=== PATIENT | male | born 1985 | race Caucasian/White ===

== ENCOUNTER 2020-02-29 20:33 | Emergency (ER) | payer OTHER, SELFPAY ==
[2020-02-29 20:38] VITALS: BP 152/91; PULSE 83; RESP 18; TEMP 36.2; O2SAT 97
--- NOTE | 2020-02-29 20:41 | ED.ANIMALBIT ---
HPI - Animal Bite General Chief Complaint: Animal Bite Stated Complaint: Dog bite Time Seen by Provider: 02/29/20 20:37 Source: patient and RN notes reviewed Mode of arrival: ambulatory Limitations: no limitations History of Present Illness HPI narrative: A 34 y/o male presents to the ED after being bit by a dog earlier this evening. He states that he was walking his dog when it got into a fight with their neighbors dog when he was bitten on his rt hand, causing pain and a puncture wound. He reports that he knows that the dog is up to date on its vaccines but that he is unsure of when his last tetanus shot was. He notes that he cleaned the wound with peroxide shortly after and that he took 800 mg of Motrin roughly 30 minutes YARN MAN. He denies any numbness, tingling, or weakness. He also denies wanting any pain medication at this time. complaint: animal bite Onset (ago): hour(s) Animal: dog Description of animal: household pet Mechanism: bite Location - Extremities: Right: hand Context: animals fighting Associated symptoms: other (puncture wound and pain to rt hand) Related Data Patient tetanus UTD: No Allergies Allergy/AdvReac Type Severity Reaction Status Date / Time Penicillins Allergy Unknown Verified 02/29/20 20:52 Review of Systems Review of Systems: All systems reviewed & are unremarkable except as noted in HPI and below Integumentary/Breasts: Skin/Breast: Reports wounds (painful puncture to rt hand) Neurologic: Denies focal weakness, Denies numbness and Denies tingling PMFSH Past Medical History Medical History (Updated 02/29/20 @ 21:13 by Sam Rangel MD) Asthma Surgical History Surgical History (Updated 02/29/20 @ 20:46 by Juan C Squires) No history of previous surgery Social History Social History (Updated 02/29/20 @ 20:47 by Juan C Squires) Smoking status: Never smoker Smokeless tobacco user: chewing tobacco Substance use: never Exam Narrative: Exam Narrative: GENERAL: Well-appearing, well-nourished, and in no acute distress. HEAD: Normocephalic, atraumatic. HEART: Regular rate and rhythm. Normal peripheral pulses. EXTREMITIES: Normal range of motion. Tender to palpation over the thenar eminence of the right hand. Neurovascular intact throughout the hand. SKIN: Warm, dry, puncture wound right thenar eminence with additional superficial abrasion from bite injury. No active bleeding. NEURO: No focal deficits. Alert and oriented x3. Course Course Emergency Course: Wound cleansed. Tetanus updated. Doxycycline given for infection prophylaxis. Vital Signs Vital signs: Vital Signs Temperature 97.2 F L 02/29/20 20:38 Pulse Rate 83 02/29/20 20:38 Respiratory Rate 18 02/29/20 20:38 Blood Pressure 152/91 H 02/29/20 20:38 Pulse Oximetry 97 02/29/20 20:38 Temperature 97.2 F L 02/29/20 20:38 Pulse Rate 83 02/29/20 20:38 Respiratory Rate 18 02/29/20 20:38 Blood Pressure 152/91 H 02/29/20 20:38 Pulse Oximetry 97 02/29/20 20:38 Discharge Plan Discharge Clinical Impression: Dog bite Qualifiers: Encounter type: initial encounter Qualified Code(s): W54.0XXA - Bitten by dog, initial encounter Patient Disposition: Home, Self-Care Condition: Stable Instructions: Antibiotic Form, Animal Bite (ED) Additional Instructions: Return to the ER if your hand/forearm is red/hot/swollen, you have pus draining from your wound, you develop fever over 100.4 ?F. Prescriptions: New doxycycline hyclate 100 mg tablet 100 mg PO BID Qty: 10 RF: 0 Follow-up/Referrals: UNKNOWN,DOCTOR [Primary Care Provider] - 1 Week
[2020-02-29] MEDS: DOXYCYCLINE HYCLATE 100 MG TABLET PO (21:05)
[2020-02-29] MEDS: TETANUS,DIPHTHERIA,AC PERTUSSIS ADULT (0.5 ML) BOOSTRIX IM (21:05)
[2020-02-29 21:26] VITALS: BP 140/89; PULSE 80; RESP 16; O2SAT 100
== END 2020-02-29 21:27 | disposition home or self-care (01) ==
PROVIDERS: Emergency Provider Emergency Medicine
DX: S61.451A Open bite of right hand, initial encounter (principal); J45.909 Unspecified asthma, uncomplicated; Z23 Encounter for immunization; F17.220 Nicotine dependence, chewing tobacco, uncomplicated; W54.0XXA Bitten by dog, initial encounter
CPT/HCPCS: 90471; 90715; 99283; A9270

== ENCOUNTER 2022-08-14 11:59 | Emergency (ER) | payer OTHER, SELFPAY ==
--- NOTE | ~2022-08-14 | XR_ITS ---
EXAMINATION: XR ankle LT min 3V DATE: 08/14/2022 12:18 INDICATION: Left ankle pain. TECHNIQUE: 4 views of left ankle were obtained. COMPARISON: None. FINDINGS: Bone alignment is normal. No fracture. Joint spaces are well maintained. There is an enthes ophyte at posterior aspect of calcaneal tuberosity. IMPRESSION: 1. No acute fracture. Reviewed, dictated and finalized at location A. IMPRESSION: 1. No acute fracture.
[2022-08-14 12:01] VITALS: BP 145/84; PULSE 73; RESP 18; TEMP 36; O2SAT 100
--- NOTE | 2022-08-14 12:29 | ED.GENADULT ---
HPI - General Adult General Chief complaint: Extremity Injury, Lower Stated complaint: L ankle pain Time Seen by Provider: 08/14/22 12:20 History of Present Illness HPI narrative: This is a 37-year-old male presents to ED with left ankle pain. Patient was playing football with his son when he tried to start running he felt a popping sensation in the back of his ankle. Since then he has had weakness with dorsiflexion. He then came to the emergency department for further evaluation. Related Data Allergies Allergy/AdvReac Type Severity Reaction Status Date / Time Penicillins Allergy Unknown Verified 02/29/20 20:52 Review of Systems Review of Systems: CONSTITUTIONAL: Denies night sweats. EYES: No eye pain ENT: Denies rhinorrhea CARDIOVASCULAR: Denies palpitations RESPIRATORY: Denies hemoptysis GASTROINTESTINAL: Denies hematemesis GENITOURINARY: Denies hematuria. SKIN: Denies rash MUSCULOSKELETAL: Denies myalgia. NEUROLOGIC: Denies weakness. PSYCHIATRIC: Denies delusions [facility] Past Medical History Medical History (Updated 08/14/22 @ 12:46 by Ky Valle MD) Asthma Asthma Depression Surgical History Surgical History (Updated 02/29/20 @ 20:46 by Juan C Squires) No history of previous surgery Social History Social History (Updated 02/29/20 @ 20:47 by Juan C Squires) Smoking status: Never smoker Smokeless tobacco user: chewing tobacco Substance use: never Exam Narrative: APPEARANCE: No apparent distress. Head atraumatic. EYES: PERRLA/EOMI, NOSE: Normal no drainage NECK: Supple, Trachea midline RESPIRATORY: CTAB, No increased work of breathing. CARDIOVASCULAR: S1S2 appreciated ABDOMINAL: Soft, nontender, nondistended, MUSCULOSKELETAl: No obvious deformities, Focal exam of left lower extremity revealed a positive Thomas test on the left. Patient has tenderness to palpation over the Achilles tendon. Point of care ultrasound revealed discontinuity of the Achilles tendon as compared to the healthy side. NEURO: Alert. Moving 4/4 extremities SKIN:: Warm, dry. Normal color PSYCHIATRIC: Normal affect Course Vital Signs Vital signs: Vital Signs Temperature 96.8 F L 08/14/22 12:01 Pulse Rate 73 08/14/22 12:01 Respiratory Rate 18 08/14/22 12:01 Blood Pressure 145/84 H 08/14/22 12:01 Pulse Oximetry 100 08/14/22 12:01 Oxygen Delivery Room Air 08/14/22 12:01 Temperature 96.8 F L 08/14/22 12:01 Pulse Rate 73 08/14/22 12:01 Respiratory Rate 18 08/14/22 12:01 Blood Pressure 145/84 H 08/14/22 12:01 Pulse Oximetry 100 08/14/22 12:01 Oxygen Delivery Room Air 08/14/22 12:01 Procedures Orthopedic Splinting/Casting Injury #1: Splinting/Casting Date: 08/14/22 Splinting/Casting Time: 12:42 Side: left Lower Extremity Injury Location: lower leg Lower Extremity Immobilizer: posterior splint ( Posterior splint in plantar flexion) Pre-Procedure Neuro Vascular Exam: normal Post-Procedure Neuro Vascular Exam: normal Other Orthopedic Equipment: crutches Medical Decision Making MDM Narrative Medical decision making narrative: This is a 37-year-old male presenting to ED with left ankle pain. Patient's history and physical are consistent with a Achilles rupture. Point of care ultrasound revealed disruption of the left Achilles tendon fibers which are consistent w/ rupture. Patient has been placed in a posterior mold in slight plantar flexion. Crutches were provided. He has been treated with [place] and Motrin. He is instructed to follow-up with orthopedics outpatient. Vital Signs Vital Signs: Vital Signs Temperature 96.8 F L 08/14/22 12:01 Pulse Rate 73 08/14/22 12:01 Respiratory Rate 18 08/14/22 12:01 Blood Pressure 145/84 H 08/14/22 12:01 Pulse Oximetry 100 08/14/22 12:01 Oxygen Delivery Room Air 08/14/22 12:01 Temperature 96.8 F L 08/14/22 12:01 Pulse Rate 73 08/14/22 12:01
[2022-08-14] MEDS: IBUPROFEN 400 MG TABLET 800 MG PO (12:48)
[2022-08-14] MEDS: HYDROcodone/acetaminophen (*CRX) 5-325 MG TABLET 2 TAB PO (12:48)
== END 2022-08-14 13:30 | disposition home or self-care (01) ==
PROVIDERS: Emergency Provider Emergency Medicine; PCP Family Medicine
DX: S86.012A Strain of left Achilles tendon, initial encounter (principal); X50.0XXA Overexertion from strenuous movement or load, initial encounter; F17.220 Nicotine dependence, chewing tobacco, uncomplicated
CPT/HCPCS: 29515; 73610; 99284; A9270

== ENCOUNTER → 2022-08-16 17:02 | Outpatient (CLI) | payer OTHER, SELFPAY ==
--- NOTE | ~2022-08-16 | MR_ITS ---
EXAMINATION: MR ankle LT wo con DATE: 08/16/2022 17:44 INDICATION: Left Achilles pain. TECHNIQUE: Magnetic resonance imaging (MRI) of the left ankle was performed without intravenous contr ast. Sequences included sagittal PD-weighted FS FSE, sagittal PD-weighted FSE, coronal PD-weighted FS FSE, coronal PD-weighted FSE, axial PD-weighted FS FSE, and axial PD-weighted FSE. COMPARISON: Left ankle radiographs 08/14/2022 FINDINGS: Medial ankle ligaments: The superficial and deep components of the deltoid ligament are normal. Lateral ankle ligaments: There are changes of lateral ankle sprain characterized by thickening and increased signal involving the anterior talofibular ligament and calcaneofibular ligament. Posterior talofibular ligament is int act. The anterior and posterior tibiofibular ligaments are intact. Tendons: The medial and anterior ankle tendons are normal. The peroneal tendons are normal. There is tendinopa thy of Achilles tendon with complete tear 7 cm proximal to the distal insertion. There is a gap betwe en the torn ends of the tendon measuring 1.8 cm. Plantar fascia: Central band of the plantar fascia demonstrates thickening and increased signal intensity, consistent with fasciitis. Bones/other: Bone alignment is normal. No fracture. The talar dome is normal. Fluid: There are small ankle and subtalar joint effusions. There is subcutaneous edema about the foot and an kle. IMPRESSION: 1. Complete tear of Achilles tendon. 2. Changes of lateral ankle sprain. 3. Plantar fasciitis. Reviewed, dictated and finalized at location A.
== END ==
PROVIDERS: PCP Orthopaedic Surgery; Visit Provider Orthopaedic Surgery
DX: S86.012D Strain of left Achilles tendon, subsequent encounter (principal); X58.XXXD Exposure to other specified factors, subsequent encounter
CPT/HCPCS: 73721

== ENCOUNTER 2022-08-26 01:55 | Day surgery (SDC) | payer OTHER, SELFPAY ==
[2022-08-19 14:31] VITALS: BMI 30.5
--- NOTE | 2022-08-19 14:38 | PC.NURSE ---
Report to the Outpatient Waiting Room, entrance under the green pavilion located off [facility], at time 0830 on date 08/26/22. OR Time: 1030. Time changes happen often and if your time is changed the preop area will call you the afternoon before. - You and your visitor will be asked to self-screen and do not enter if you have any COVID symptoms. - Only one visitor and NO children visitors are allowed at this time. - The patient visitor is requested to leave or wait in car when not with patient due to restrictions. - A mask is required within the hospital. Patients may have clear liquids (water, carbonated beverages, clear teas, apple juice) until 3 hours prior to surgery with a maximum of 20 ounces. - No food from midnight until time of surgery Take the following medications with a SIP of water the morning of surgery: FLUOXETINE Medications to discontinue per physician: N/A Date to take last dose: N/A Please no make-up, nail kuwaiti, hairspray, perfume, deodorant, or body powder the day of surgery. No jewelry (including any body piercings) or valuables the day of surgery, leave them at home. Please take a shower or bath the night before, or the morning of, surgery with an antibacterial soap. Wear comfortable, loose fitting clothing. - Jewelry must be removed prior to entering the operating room. Rings and piercings that are not removed may be cut off. - The hospital will not accept responsibility for valuables. - Please leave all valuables, including medications, at home the day of surgery. If you are going home after surgery, a licensed substitute bus driver must drive you home. - NO public transportation without another adult. - We recommend that an adult stay with you for 24 hours following discharge. - We also recommend that you do not drive, make important decision, drink alcoholic beverages, or take any drugs that were not prescribed by your health care provider for at least 24 hours after your discharge time. Follow any additional instructions given to you from your surgeon. If you or anyone in your household have experienced Covid symptoms in the past week, please notify your surgeon or the nurse liaison at the phone number below for possible testing. Telephone instructions given to PT - CELSA LEPE and asked if any additional questions and then verbalized understanding. Patient advised to call surgeon office or pre surgery nurse liaison [phone] if any additional questions.
--- NOTE | 2022-08-25 13:12 | P.PNAN_ITS ---
Anes - Initial Pre Proc Eval Procedure: Operation Date: 08/26/22 10:30 Proposed Procedures p Left Achilles Tendon Repair - Abel Sheikh MD Date/Time: 08/25/22 13:12 Surgeon: Abel Sheikh MD Pre Op Diagnosis: left achilles tendon rupture Patient Data Age: 37 Gender: M Height: 1.83 m Weight: 102.06 kg Allergies Allergy/AdvReac Type Severity Reaction Status Date / Time shellfish derived Allergy Intermediate Other Verified 08/26/22 08:52 Penicillins Allergy Mild Unknown Verified 08/26/22 08:52 Home Medications Medication Instructions Recorded Confirmed Type fluoxetine 20 mg capsule 20 mg PO DAILY 08/19/22 08/19/22 History montelukast 10 mg tablet 10 mg PO HS 08/19/22 08/19/22 History Patient hx anesthesia problems: none Family hx anesthesia problems: none Results Review: All pre-operative results and documents have been reviewed as part of the pre- operative evaluation. [facility] Past Medical History Medical History (Updated 08/19/22 @ 10:49 by Abel Sheikh MD) Asthma Asthma Depression Rupture of left Achilles tendon Sleep apnea Surgical History Surgical History (Updated 02/29/20 @ 20:46 by Juan C Squires) No history of previous surgery Family History Family History (Updated 08/19/22 @ 10:29 by Paty Khanna MA) Mother Breast cancer Father Crohn disease Social History Social History (Updated 08/19/22 @ 10:29 by Paty Khanna MA) Smoking status: Never smoker Smokeless tobacco user: chewing tobacco Alcohol intake: current Drinks per week: 2 Substance use: never Substance use type: does not use Living arrangements: with family Spiritual care concerns: No Anes - Eval Final PreProcedure Day of Procedure 08/25/22 13:12 Patient weight: obese Heart: regular rate and rhythm Lungs: clear to auscultation and normal air movement Airway: Mallampati scale class II Neurological: alert and oriented Last oral intake: >/= 8 hours ASA classification: III Emergent: no Anesthetic plan: proceed Anesthesia type and monitoring: general ETT Results Review: All pre-operative results and documents have been reviewed as part of the pre- operative evaluation. Informed Consent: The patient's anesthetic plan and its attendant risks and benefits were discussed with the patient/family/POA. Questions were solicited and answers provided to the satisfaction of the patient/family/POA.
[2022-08-26] VITALS (8 sets, daily range): BP systolic 123–157; BP diastolic 70–93; PULSE 59–78; RESP 14–18; TEMP 36.3–36.9; O2SAT 95–100
[2022-08-26] MEDS: ACETAMINOPHEN 500 MG TABLET 1000 MG PO (08:50)
[2022-08-26] MEDS: LACTATED RINGERS 1,000 ML 30 ML IV CONT ×2 (09:21→12:40)
[2022-08-26] MEDS: KETOROLAC 15 MG/ML VIAL (*BKC) IV PUSH (09:22)
--- NOTE | 2022-08-26 10:07 | WPDHPUPDATE1 ---
History and Physical Update Update Date/Time: 08/26/22 10:07 History and Physical has been reviewed, including an updated exam of the patient. There are NO changes in the patient's condition. Risks, benefits, and alternatives have been discussed and questions answered. Patient agrees to proceed with procedure.
[2022-08-26] MEDS: ceFAZolin 2 GM/D5W 50 ML 2 GM/50 ML BAG IVPB (10:38)
[2022-08-26] MEDS: BUPIVACAINE/EPINEPHRINE 0.25% 50 ML VIAL 30 ML INFILTRATE (11:23)
[2022-08-26] MEDS: oxyCODONE HCL (*CRX) 5 MG TAB IR PO (14:01)
--- NOTE | 2022-08-26 16:24 | W.PM.PROC2 ---
Procedure Note - Detailed Date of Procedure 08/26/22 Pre-op Diagnosis left achilles tendon rupture Post-op Diagnosis Same Procedure Performed Left Achilles tendon repair. Surgeon Abel Sheikh MD Convenience Store Clerk Kinjal Campos PA-C Anesthesia General Indications Acute traumatic rupture at the watershed area of the Achilles tendon. Description of Procedure Preoperative antibiotics were given. The patient was carefully placed in the prone position. The ankle was prepped and draped in usual sterile fashion. The limb was exsanguinated, and the tourniquet inflated to 300 mmHg. A longitudinal incision was created over the medial border of the Achilles tendon. Careful dissection was brought down to the tendon. The peritenon was preserved for later repair. The tendon was completely ruptured. The loose ends were debrided and reapproximated with mild tension. Krackow suture was woven through both ends of the tendon and then passed through the center portion of the tendon with a Sabas needle. The suture ends were then secured and tied distal and proximal to the crossing suture of the Krackow stitch. The repair was quite henning at this point. It was augmented with 1. Vicryl woven along the size of the tendon and across the tendon. The tendon was nicely tubularize and appeared quite healthy. The tourniquet was released. Meticulous hemostasis maintained. The wound was irrigated copiously. Careful closure of the. Ten on was accomplished with 2-0 Vicryl and 3-0 Monocryl. The subcutaneous tissues were closed with 3-0 Monocryl and running 4-0 Monocryl with Steri-Strips. Careful and meticulous skin handling was used throughout the procedure. A well-padded posterior splint was applied. The patient was exsanguinated and brought to the recovery room in stable condition. There were no complications. Estimated Blood Loss -5.0 Pathology None sent Complications No immediate complications Condition Stable Disposition PACU [facility] Billing Surgery - Charge Forward: Surgery Billing
== END 2022-08-26 14:17 | disposition home or self-care (01) ==
PROVIDERS: Visit Provider Orthopaedic Surgery
PROC: (CPT 27650; principal; 2022-08-26 10:30)
DX: S86.012A Strain of left Achilles tendon, initial encounter (principal); T14.90XA Injury, unspecified, initial encounter; F17.220 Nicotine dependence, chewing tobacco, uncomplicated; J45.909 Unspecified asthma, uncomplicated
CPT/HCPCS: 27650; A9270; J0690; J1100; J1170; J1885; J2250; J2405; J2704; J3010; J7120

== ENCOUNTER 2025-07-30 08:16 | Emergency (ER) | payer OTHER, SELFPAY ==
--- OUTSIDE RECORDS SUMMARY | 2010-12-04 19:00 | XMS_ITS | Continuity of Care Document ---
Author Organization [facility] Address [address] [place] [address] Phone Care Team Providers Care Cane Loader Name Role Phone Sina Grijalva MD Unavailable Unavailable Medications Medication Instructions Dosage Effective Dates (start - stop) Status Comments TRIAMCINOLONE ACETONIDE 0.1% A 1 BID - Active VERAMYST 27.5MCG SPRAY(S) 2 QD-daily - Active FEXOFENADINE HCL 180MG TABS 1 QD-daily - Active PROVENTIL HFA 90MCG PUFFS 2 Q 4HR - Active SINGULAIR 10MG TABS 1 QHS - Active ADVAIR DISKUS 250-50MCG DISKS 1 BID - Active Advance Directives Directive Yes / No Effective Date File Name No Information Encounters Encounter Description Practice Location Reason(s) For Visit Diagnoses Date Provider Providers Copied on Encounter [facility], [id number] [place] [address], [id number], tel:[phone] [facility] No Information Rudi Andino. [address] [place] [address], [id number], . tel:[phone] [facility], [address], [place], [id number], [place] tel:[phone] [facility] INTRINSIC ASTHMA NOSALLERGIC RHINITIS NEC Rudi Andino. [address] [place] [address], [id number], . tel:[phone] [facility], [address], [place], [id number], tel:[phone] [facility] OTHER ATOPIC DERMATITIS Rudi Andino. [address], [id number], . tel:[phone] Family History Family Member Type Diagnosis Age At Onset No Information Payers Payer name Insurance type Covered alliance party ID Authoriza tion(s) No Information Social History Type Description Quantity Date Captured Comments Sex Male Smoking Status No Information Chief Complaint And Reason For Visit No Information Reason For Referral Reason For Referral No Information History Of Present Illness Encounter Date Complaint History Of Prese nt Illness No Information Functional Status Date Functional Assessmen t No Information Instructions Date Instruction Additional Infor mation No Information Assessments Type Assessment Date No Information Patient Care Teams Name Effective Dates (start - stop) Status Members No Information
--- OUTSIDE RECORDS SUMMARY | 2010-12-04 19:00 | XMS_ITS | Continuity of Care Document ---
Author Organization [facility] Address [address] [place] [address] Phone Care Team Providers Care Supervisor [employer] Store Name Role Phone Sina Grijalva MD Unavailable [...] Diagnoses Date Provider Providers Copied on Encounter [facility], [id number] [place] [address], [id number], tel:[phone] [facility] No Information Rudi Andino. [address] [place] [address], [id number], . tel:[phone] [facility], [address], [place], [id number], [place] tel:[phone] [facility] INTRINSIC ASTHMA NOSALLERGIC RHINITIS NEC Rudi Andino. [address] [place] [address], [id number], . tel:[phone] [facility], [address], [place], [id number], tel:[phone] [facility] OTHER ATOPIC DERMATITIS Rudi Andino. [address], [id number], . tel:[phone] Family History Family Member Type Diagnosis Age At Onset No Information Payers Payer name Insurance type Covered constitution party ID Authoriza tion(s) No Information Social [...]
--- OUTSIDE RECORDS SUMMARY | 2025-07-30 08:19 | XMS_ITS | Clinical Summary ---
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 Gender Identity Not on file Sexual Orientation Not on file Plan of Treatment Health Maintenance Due Date Last Done Comments Annual Physical 1987 DTaP, Tdap and Td Vaccines (2 - Tdap) 05/01/1998 04/30/1998, 06/15/1989, 10/23/1985, Additional history exists Hepatitis C 2002 HPV Vaccines (1 - 3-dose SCDM series) 2011 COVID-19 Vaccine ( season) 2024 12/25/2020, 11/27/2020 Hepatitis B Vaccines Completed 11/17/1998, 06/09/1998, 04/30/1998 Meningococcal B Vaccine Aged Out No l onger eligible based on patient's age to complete this topic Meningococcal Vaccine Aged Out No anselmo elias eligible based on patient's age to complete this topic Pneumococcal Vaccine: Pediatrics (0 to 5 Years) and At-Risk Patients (6 to 49 Years) Aged Out No longer eligible based on patient's age to complete this topic RSV Immunizations Under 20 Months Aged Out No longer eligible based on patient's age to complete this topic Insurance [facility]
--- OUTSIDE RECORDS SUMMARY | 2025-07-30 08:19 | XMS_ITS | Clinical Summary ---
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 THEN TAKE 1 CAPSULE BY MOUTH TWICE DAILY UNTIL FLARE RESOLVES 28 capsule 4 Active Additional Information Patient not taking.Reported on 04/25/2025 albuterol HFA (Proventil HFA) 90 mcg/actuation inhalerIndicatio ns:Mild persistent asthma without complication Inhale 2 puffs every 4 (four) hours as needed for wheezing or shortness of breath 6.7 g 11 4 09/07/20 25 Active FLUoxetine (PROzac) 20 mg capsuleIndicatio ns:Major depressive disorder with single episode, in full remission Take 1 capsule (20 mg total) by mouth daily 90 capsule 3 4 Active montelukast (SINGULAIR) 10 mg tabletIndication s:Mild persistent asthma without complication,[place] allergic rhinitis due to pollen Take 1 tablet (10 mg total) by mouth daily 90 tablet 3 4 Active Active Problems Problem Noted Date Diagnosed Date ADITHYA (obstructive sleep apnea) 08/24/2022 Assessment & Plan (04/25/2025 8:45 AM CDT): The patient continues to benefit from the auto titrating CPAP unit with a range of 5-20 cm water pressure for ongoing symptoms ADITHYA. His DME supplier is [employer]. He will follow up here in 1 year. Assessment & Plan (04/19/2024 8:50 AM CDT): The patient continues to benefit from the auto titrating CPAP unit with a range of 5-20 cm water pressure for ongoing symptoms of ADITHYA. His DME supplier is [employer]. He will follow up here in 1 year. Assessment & Plan (04/08/2023 9:29 AM CDT): The patient will continue with CPAP therapy at 5-20 cm water pressure. Denied need for supplies. DME [facility] Assessment & Plan (08/24/2022 11:10 AM CDT): The patient will continue with CPAP therapy at 5-20 cm water pressure. Denied need for supplies. DME [facility] Allergic rhinitis 06/30/2017 Resolved Problems Problem Noted Date Diagnosed Date Resolved Date Snoring 05/24/2022 08/24/2022 Assessment & Plan (05/24/2022 3:20 PM CDT): The patient presents with snoring, witnessed apneas and daytime fatigue. I have recommended proceeding with a nocturnal polysomnogram with a split night protocol if necessary and no MSLT. He will follow up here in 3 months. Immunizations Immunization Administration Dates Next Due DTP 06/15/1989, 5,1984,08/07,1984 Hep A, Adult 09/22/2006 Hep B, Adolescent or Pediatric 11/17/1998,1997,04/30/1998 Hep B, Unspecified 11/17/1998,04/30/1998 Influenza, Quadrivalent, Spl it, Preservative Free, Intramuscular 09/22/2022,08/18/2021,08/19/2020,07/24,09/07/2018 Influenza, Trivalent, IM (MDV) 08/27/2014 Influenza, Trivalent, Preser vative Free, Intramuscular 08/26/2017,08/23/2016 Influenza, Unspecified 09/07/2024(Deferr ed: Patient Refused),09/14/2023(Deferred: Patient decision),08/31/2023(Deferred: Patient Refused),09/14/2022(Deferred: Patient decision),08/18/2021 MMR 05/27/1993,07/13/1985 OPV 06/15/1989, 5,1984,06/09 Td, adsorbed 04/30/1998 Tdap 02/29/2020 Surgical History Surgery Date Site/Laterality Comments LEG SURGERY Left Medical History Medical History Date Comments Asthma Heart murmur Family History Medical History Relation Name Comments Crohn's disease Father Carter Depression Father Carter Hyperlipidemia Father Carter Hypertension Father Carter Cancer Mother Veena Hypertension Mother Veena Diabetes Other Heart disease Other Hypertension Other Relation Name Status Comments Father Carter Mother Veena Other Social History Tobacco Use Types Packs/Day Years Used Date Smoking Tobacco: Never Smokeless Tobacco: Former Tobacco Cessation:Counseling Given: Not Answered Alcohol Use Standard Drinks/Week Comments Yes 0 (1 standard drink = 0.6 oz pur e alcohol) AUDIT-C Answer Date Recorded Q1: How often do you have a drink containing alc ohol? 2-4 times a month 08/31/2023 Q2: How many drinks containi ng alcohol do you have on a typical day when you are drinking? 3 or 4 08/31/2023 Q3: How often do you have si x or more drinks on one occasion? Never 08/31/2023 PHQ-2 Answer Date Recorded PHQ-2 Total Score 0 09/07/2024 Sex and Gender Information Value Date Recorded Sex Assigned at Not on file Legal Sex Male 8:17 PM [employer] Gender Identity Male 06/26/2020 7:12 AM CDT Sexual Orientation Straight 06/26/2020 7: 12 AM CDT Obstetrics History Last Filed Vital Signs Vital Sign Reading Time Taken Comments Blood Pressure 122/70 04/25/2025 8:34 AM CDT Pulse 55 04/25/2025 8:34 AM CDT Temperature 36.6 C (97.8 F) 04/25/2025 8:34 AM CDT Respiratory Rate 17 04/25/2025 8:34 AM CDT Oxygen Saturation 98% 04/25/2025 8:34 AM CDT Inhaled Oxygen Concentration - - Weight 107.5 kg (236 lb 14.4 oz) 04/25/2025 8:34 AM CDT Height 182.9 cm (6') 04/25/2025 8:34 AM CDT Body Mass Index 32.13 04/25/2025 8:34 AM CDT Plan of Treatment Health Maintenance Due Date Last Done Comments Hepatitis C Screening 1984 Pneumococcal vaccine <65 (1 of 2 - PCV) 2003 HPV Vaccines (1 - 3-dose SCD M series) 2011 Covid-19 Vaccine (2024-2 6 season) 2025 12/25/2020, 11/27/2020 Influenza Vaccine (#1) 2025 , 08/18/2021, 08/18/2021, Additional history exists Depression Screening 09/07/2025 09/07/2024, 12/21/2023, 08/31/2023, Additional history exists Regular Well Visit/Exam 18-64 09/07/2025, 09/07/2024, 08/31/2023, Additional history exists DTaP/Tdap/Td Vaccine (7 - Td or Tdap) 02/28/2030 02/29/2020, 04/30/1998, 06/15/1989, Additional history exists Hepatitis B Screening Completed 11/17/1998 , 11/17/1998, 06/09/1998, Additional history exists Varicella Vaccines Discontinued Insurance [facility] CHOICE PLUS Care Teams Halal Meat Packer Relationship Specialty Start Date End Date Quinn Carvajal MD [address] [place] [address] PCP - General Family Medicine 08/17/19
--- OUTSIDE RECORDS SUMMARY | 2025-07-30 08:20 | XMS_ITS | Clinical Summary ---
Author Organization [facility] Address [address] [place] [address] Care Team Providers Care Photo Booth Operator Name Role Phone Unavailable Primary Care Provider Unavailabl e Social History Tobacco Use Types Packs/Day Years Used Date Smoking Tobacco: Never Assessed Sex and Gender Information Value Date Recorded Sex Assigned at Not on file Legal Sex Male 10:03 AM CDT Gender Identity Not on file Sexual Orientation Not on file Plan of Treatment Health Maintenance Due Date Last Done Comments Hepatitis C Virus (HCV) Screening 1984 TdaP Immunization 1984 Hepatitis B Immunization (1 of 3 - 19+ 3-dose series) 2003 Human Papillomavirus (HPV) Immunization (1 - 3-dose SCDM series) 2011 SARS-COV-2 Immunization ( season) 2024 Influenza Immunization (#1) 2025 Respiratory Syncytial Virus (RSV) Immunization (Adult) (1 - 1-dose 75+ series) 2059 Meningococcal Immunization (ACWY) Aged Out No longer eligible based on patient's age to complete this topic Pneumococcal Immunization Combined Aged Out No longer eligible based on patient's age to complete this topic Rotavirus Immunization Aged Out No lo nger eligible based on patient's age to complete this topic
[2025-07-30 08:28] VITALS: BP 137/89; PULSE 63; RESP 18; TEMP 36.1; O2SAT 100
--- NOTE | 2025-07-30 08:52 | ED.EXTPRO ---
HPI - Extremity Problem General Chief complaint: Extremity Problem,Nontraumatic Stated complaint: painful toe Time Seen by Provider: 07/30/25 08:35 Source: patient and RN notes reviewed Mode of arrival: ambulatory Limitations: no limitations History of Present Illness HPI Narrative: 40-year-old male presents Express Care complaining of right great toe pain approximately 2 days. Patient reports redness, swelling, pain to to his right great toe. Patient denies any injuries. Patient says he has a history of gout and has had it in the same toe. Patient said he has been drinking more alcohol me in usual over the last couple weeks. Patient denies any fevers, body aches, chills, nausea vomiting or any other symptoms. Has not tried any [id number] to help with symptoms. Related Data Home Medications ?Medication ?Instructions ?Recorded ?Confirmed ?Last Taken ?Type fluoxetine 20 mg capsule 20 mg PO DAILY 08/19/22 07/30/25 08/26/22 History montelukast 10 mg tablet 10 mg PO HS 08/19/22 07/30/25 08/25/22 History albuterol sulfate 90 mcg/actuation inhalation 07/30/25 Unknown History aerosol inhaler Allergies Allergy/AdvReac Type Severity Reaction Status Date / Time shellfish derived Allergy Intermediate Other Verified 07/30/25 08:18 Penicillins Allergy Mild Hives Verified 07/30/25 08:18 Review of Systems Review of Systems: CONSTITUTIONAL: Denies fever, chills, or sweats. EYES: Denies visual changes, redness, or discharge. ENT: Denies rhinorrhea, congestion, sore throat, or otalgia. CARDIOVASCULAR: Denies chest pain, palpitations, or edema. RESPIRATORY: Denies cough or dyspnea. GASTROINTESTINAL: Denies abdominal pain, nausea, vomiting, or diarrhea. GENITOURINARY: Denies dysuria or hematuria. SKIN: Denies rash or itching. MUSCULOSKELETAL: Denies back pain, joint pain, or myalgia. Positive for right great toe pain. NEUROLOGIC: Denies headache, numbness, or weakness. PSYCHIATRIC: Denies anxiety or depression. All other systems reviewed are negative, except as documented in HPI. [facility] Past Medical History Medical History Rupture of left Achilles tendon Sleep apnea Depression Asthma Surgical History Surgical History History of Achilles tendon repair (~08/26/22) Family History Family History Mother Breast cancer Father Crohn disease Social History Social History Smoking status: Current every day smoker Smokeless tobacco user: chewing tobacco Alcohol intake: current Drinks per week: 2 Substance use: never Substance use type: does not use Lack of Transportation: No Lack of Food: Never True Current Housing: I Have Housing Concerned About Future Housing: No Difficulty Paying Gas/Electric Bills: No Difficulty Paying for Meds: No Currently Unemployed: No Education: Bachelor's Degree Difficulty w/ Childcare or Family Care: No Living arrangements: with family Spiritual care concerns: No Comments At the time of my signature, I reviewed and agree with the nursing past medical, surgical, social, and family history. There is no relevant family history pertinent to the patient complaint. Exam Narrative: GENERAL: This is a well-nourished, well-developed adult, in no apparent distress. They are non ill-appearing, nontoxic appearing. HEAD: normocephalic, atraumatic. EYES: Sclera clear/white. Conjunctiva normal. Vision is grossly intact. Extraocular movements intact EARS: External ears normal, Hearing grossly intact. NOSE: External nose normal THROAT: Mucous membranes moist, NECK: Neck supple, CARDIOVASCULAR: Regular rate and rhythm RESPIRATORY: Respiratory rate normal, respiratory effort nonlabored, no respiratory distress SKIN: warm, Dry, intact with no suspicious lesions or rash, good texture and turgor. NEURO: awake, alert, and oriented to person, place and time. There were no obvious focal neurologic abnormalities. EXTREMITIES: Right foot: Edematous. Obvious deformity or injury, or bruising. Right great toe is erythematous and tender to palpate near the MTP joint. Normal range of motion. Capillary refill less than 2 seconds. Right pedal pulse 2 +and palpable. Patient is able to wiggle his toes. Neurovascular status intact. Course Course Emergency Course: Portions of this record may have been created with voice recognition software Level of Care: Express Care Visit Vital Signs Vital signs: Vital Signs Temperature 97.0 F L 09/02/25 08:28 Pulse Rate 63 07/30/25 08:28 Respiratory Rate 18 07/30/25 08:28 Blood Pressure 137/89 07/30/25 08:28 Pulse Oximetry 100 07/30/25 08:28 Oxygen Delivery Room Air 07/30/25 08:28 Temperature 97.0 F L 07/30/25 08:28 Pulse Rate 63 07/30/25 08:28 Respiratory Rate 18 07/30/25 08:28 Blood Pressure 137/89 07/30/25 08:28 Pulse Oximetry 100 07/30/25 08:28 Oxygen Delivery Room Air 07/30/25 08:28 Reviewed MDM - Extremity (Nontraumatic) MDM Narrative Medical decision making narrative: Acute Gout score of 8, symptoms likely related to gout. Will prescribe colchicine and a course of prednisone. Discussed physical exam findings. Advised supportive measures and signs/symptoms to go to the ER. Pt is appropriate for outpt treatment and f/u. Differential Diagnosis Differential diagnosis: Likely gout, cellulitis and lower extremity edema Critical Care Time Critical Care Time Critical Care Time: No Discharge Plan Discharge Clinical Impression: Gout Qualifiers: Gout site: toe Gout etiology: unspecified cause Chronicity: acute Laterality: right Qualified Code(s): M10.9 - Gout, unspecified Patient Disposition: Home Condition: Stable Instructions: Low Purine Diet (ED), Gout (ED) Additional Instructions: Take 1.2 mg of colchicine now than 0.6 mg after 1 hour on day 1 then take 0.6 mg twice a day for the next 3 days. Take the prednisone as directed. Follow low purine diet a list was provided for you. Follow-up with PCP in 3-5 days. If the worsening redness, swelling, pain, fevers or any other concerns please go to the ER immediately. Patient Language: Mexican Prescriptions: New prednisone 20 mg tablet 40 mg PO DAILY 5 Days Qty: 10 0RF colchicine 0.6 mg capsule See Rx Instructions .ROUTE .COMPLEX Qty: 9 0RF Rx Instructions: Take 2 tablets by mouth (1.2mg) now then 1 tablet (0.6mg) a hour after on day 1. Then on day 2-4 take 1 tablet (0.6mg) by mouth twice a day. No Action albuterol sulfate 90 mcg/actuation HFA aerosol inhaler INHALATION montelukast 10 mg tablet 10 mg PO HS fluoxetine 20 mg capsule 20 mg PO DAILY Follow-up/Referrals: PHYSICIAN,DRIER TRANSFER CAR OPERATOR [Primary Care Provider, Internal Medicine] Time of Disposition: 08:49
== END 2025-07-30 08:50 | disposition home or self-care (01) ==
DX: M10.9 Gout, unspecified (principal); Z79.899 Other long term (current) drug therapy; F17.220 Nicotine dependence, chewing tobacco, uncomplicated
CPT/HCPCS: 99213; G0463